=== PATIENT | male | born 1960 | race Caucasian/White ===

== ENCOUNTER 2019-07-21 10:23 | Outpatient (CLI) | payer OTHER | END 2019-07-21 10:24 | disposition home or self-care (01) | LOC: CTENTCT 10:23 | PROVIDERS: ATTEND Otolaryngology Plastic Surgery within the Head & Neck | DX: J32.9 Chronic sinusitis, unspecified (principal) | CPT/HCPCS: 70486 ==

== ENCOUNTER 2019-08-03 11:20 | Day surgery (SDC) | payer OTHER ==
[2019-08-02 10:16] VITALS: BMI 29.3
[~2019-08-03 11:20] MED LIST: Dexamethasone 20 MG/5 ML VIAL ONE; Lidocaine 1% PF 5 ML VIAL ONE; Ondansetron PF 4 MG/2 ML Vial ONE; PROPOFOL 200 MG/20 ML VIAL ONE; Rocuronium Bromide 10 MG/ML (10ML VIAL) ONE
[2019-08-03] MEDS ORDERED: Oxymetazoline HCl 0.05% ( 15 ML ) ONE ×2 (12:29→12:44)
[2019-08-03] MEDS ORDERED: Bacitracin Zinc Ointment 30 gm TUBE ONE (12:29)
[2019-08-03] MEDS ORDERED: Lidocaine 1% w/Epinephrine 1:100K 20 ML VIAL ONE (12:29)
[2019-08-03] MEDS ORDERED: Fentanyl 250 MCG/5 ML VIAL ONE (12:40)
[2019-08-03] MEDS ORDERED: Labetalol HCl 100 MG/20 ML VIAL ONE (14:03)
[2019-08-03] MEDS ORDERED: hydrALAZINE 20 MG/ML VIAL ONE (14:17)
--- NOTE | 2019-08-04 06:57 | OP ---
DATE OF PROCEDURE: 08/03/2019 PREOPERATIVE DIAGNOSES: 1. Chronic rhinosinusitis. 2. Allergic fungal sinusitis. 3. Nasal polyposis. 4. Nasal septal deviation. 5. Bilateral inferior turbinate hypertrophy. POSTOPERATIVE DIAGNOSES: 1. Chronic rhinosinusitis. 2. Allergic fungal sinusitis. 3. Nasal polyposis. 4. Nasal septal deviation. 5. Bilateral inferior turbinate hypertrophy. PROCEDURES PERFORMED: 1. Bilateral endoscopic sinus surgery, total ethmoidectomy. 2. Bilateral endoscopic sinus surgery, frontal sinusotomies. 3. Bilateral endoscopic sinus surgery, sphenoidotomies. 4. Left endoscopic sinus surgery, maxillary antrostomy with removal of tissue. 5. Right endoscopic sinus surgery, maxillary antrostomy. 6. Nasal septoplasty. 7. Bilateral inferior turbinate submucosal resection. ESTIMATED BLOOD LOSS: 50 mL. COMPLICATIONS: None. ANESTHESIA: GETA. DESCRIPTION OF PROCEDURE: The patient was taken to the operating room and GETA was obtained by the anesthesia staff. Afrin pledgets were then placed into the nasal cavity bilaterally. The patient was placed into the beach chair position and was prepped and draped for standard nasal surgical procedures. Following this, the Afrin pledgets were removed and 1% lidocaine with 1:100,000 epinephrine was injected via a 27 gauge needle into the nasal septum, the inferior turbinate and the middle turbinate bilaterally. Following this, a Bubba incision was made on the left nasal septum and mucoperichondrial flaps were elevated. A strong 2 cm caudal and dorsal cartilage strut was left intact as the deviated portions of the nasal cartilage and bone was removed. A 4-0 gut stitch was used to reapproximate the nasal mucoperichondrial flaps as well as close the Minkler incision. Following this, the submucosal microdebrider was used to puncture and submucosally resect the anterior-inferior portions of the hypertrophic inferior turbinates. The inferior turbinates were laterally outfractured with a Sentinel elevator. Following this, a 0-degree endoscope was advanced in the middle meatus. The middle turbinates were gently medialized with a Sentinel elevator and the uncinate process was identified. The uncinate process was anteriorly fractured using a ball-ended probe and then was removed using the zero degree microdebrider and the up biting blakesley forcep. . On the left side, the maxillary sinus ostia was then identified. There was polypoid tissue obstructing the ostia, which was removed using the 0-degree microdebrider and a 40-degree microdebrider. The left maxillary sinus was open, fungal debris and polyps from within the left maxillary sinus were removed using 40-degree microdebrider using curved suction. Following this, on the right side, the natural maxillary sinus ostia was identified and was widened using the 40-degree microdebrider and straight Blakesley forceps. Following this, the ethmoidal bulla was identified bilaterally and was punctured on its medial and inferior aspect and was removed using the 0-degree microdebrider and up-biting Blakesley forceps. Following this, the grand lamella was identified and was punctured into the posterior ethmoidal cells using the 0-degree microdebrider. Working from posterior to anterior, the ethmoidal cells were opened. Following this, the sphenoid sinuses were approached through the previous ethmoidectomies and the anterior face of the sphenoid wall was identified. A puncture was made with the 0-degree microdebrider bilaterally into the sphenoid sinus, staying just medial and inferior to the attachment of the superior turbinate. Following this, the sphenoidotomies were then widened in a medial and inferior direction with the 0-degree microdebrider. Following this, a 45-degree endoscope along with 40- degree microdebrider blade and up-biting Blakesley forceps were used to further identify and open the frontal recess cells as well as the frontal sinus ostia, which was widened bilaterally. Following this, the nasal cavity was irrigated. Stents were placed within the maxillary sinus and frontal sinus area and NasoPore packing was placed in the middle meatus bilaterally. Vicente splints were placed and secured. The patient tolerated the procedure well. Job ID: [id number] [facility]
== END 2019-08-03 15:50 | disposition home or self-care (01) ==
LOC: SDC 11:20
PROVIDERS: ATTEND Otolaryngology Plastic Surgery within the Head & Neck
DX: J32.9 Chronic sinusitis, unspecified (principal); J34.3 Hypertrophy of nasal turbinates; J34.2 Deviated nasal septum; J33.0 Polyp of nasal cavity; Z88.8 Allergy status to other drugs, medicaments and biological substances
CPT/HCPCS: 93005; 93010; J0360; J1100; J2001; J2405; J2704; J3010